=== PATIENT | female | born 1985 | race Caucasian/White ===

== ENCOUNTER 2017-01-06 16:32 | Emergency (ER) | payer MEDICAID ==
--- NOTE | 2017-01-06 17:33 | EDPHY ---
H & P Time Seen by Provider: 01/06/17 17:17 HPI/ROS: CHIEF COMPLAINT: Right eye irritation HISTORY OF PRESENT ILLNESS: 31-year-old female presents to the emergency department by private vehicle complaining of irritation to the right eye since this morning. Patient is now noticing symptoms in the left eye as well. She states when she woke up this morning her right eye was mattery and very sticky and was stuck shot. She used a warm compress to open her eye. She denies foreign body sensation or trauma. She denies any double vision or blurry vision. She does not were contacts or glasses. ROS: Denies foreign body, denies trauma, denies double vision or blurry vision. Past Medical/Surgical History: Negative Social History: Smoking Status: Current every day smoker Physical Exam: Pupils:equal round and reactive to light EOMI Lids: no edema or swelling Skin: no proptosis, no periorbital erythema or swelling, no vesicles Conjunctivae: Injection with green discharge bilateral eyes. Cornea: Slit-lamp and fluorescein exam not indicated and not performed Anterior chamber:normal, no hyphema or hypopyon Constitutional: Initial Vital Signs Temperature (C) 36.7 C 01/06/17 16:33 Heart Rate 88 01/06/17 16:33 Respiratory Rate 16 01/06/17 16:33 Blood Pressure 124/73 H 01/06/17 16:33 O2 Sat (%) 96 01/06/17 16:33 O2 Delivery Mode Room Air Allergies/Adverse Reactions: No Known Allergies Allergy (Unverified 01/06/17 16:36) Home Medications: Medication Instructions Recorded Ofloxacin 0.3% [Ocuflox] 1 - 2 drops EACHEYE QID 7 Days 01/06/17 MDM/Departure - [facility] ED Course/Re-evaluation: 31-year-old female presents to the emergency department with right eye irritation. The patient does not were contacts. She denies foreign body sensation. She clinically has conjunctivitis. I do not think slit-lamp examination or fluorescein is indicated. Patient will be treated with Ocuflox drops. She was given referral to Ophthalmology if her symptoms did not improve. She was told to not return to work until she has been on topical antibiotic drops for 24 hours. - Depart Disposition: Home, Routine, Self-Care Clinical Impression: Conjunctivitis Qualifiers: Conjunctivitis type: acute Acute conjunctivitis type: unspecified Laterality: bilateral Qualified Code(s): H10.33 - Unspecified acute conjunctivitis, bilateral Condition: Good Instructions: Conjunctivitis (ED) Additional Instructions: Ocuflox 2 drops four times daily for one week to both eyes. Good hand washing as discussed. Return if you develop change in vision or if you feel worse in any way. Prescriptions: Ofloxacin 0.3% [Ocuflox] 1 - 2 drops EACHEYE QID 7 Days Referrals: ALIYA SIMPSON [Other] - As per Instructions Alcira Stratton MD [Non Staff Provider (MD)] - 3-4 days, if not improved ( [employer])
[2017-01-06 17:51] VITALS: BP 131/67; PULSE 86; RESP 20; TEMP 98.4; O2SAT 99
== END 2017-01-06 17:51 | disposition home or self-care (01) ==
DX: H10.33 Unspecified acute conjunctivitis, bilateral (principal); F17.200 Nicotine dependence, unspecified, uncomplicated

== ENCOUNTER 2017-02-02 12:32 | Emergency (ER) | payer MEDICAID ==
[2017-02-02 12:56] VITALS: BP 118/68; PULSE 97; RESP 14; TEMP 98.8; O2SAT 96
--- NOTE | 2017-02-02 14:08 | UCPHY ---
H & P Time Seen by Provider: 02/02/17 13:56 Patient Type: New HPI/ROS: CHIEF COMPLAINT: Cough x1 week HISTORY OF PRESENT ILLNESS: 31-year-old female presents reporting she has had a cough for the last week. Cough has been productive of loose, green sputum. Patient has noticed wheezing, with a wheezy cough and some shortness of breath. No fever. No nausea, vomiting, or diarrhea. No chest pain. Minimal upper respiratory infection symptoms. REVIEW OF SYSTEMS: Aside from elements discussed in the HPI, a comprehensive 10-point review of systems was reviewed and is negative. PAST MEDICAL HISTORY: No history of COPD, asthma, or coronary artery disease. No history of diabetes. History of hepatitis C treated with immunotherapy SOCIAL HISTORY: Smoker. VITAL SIGNS: see nurse's notes. GENERAL: Well-developed, well-nourished, in no acute distress. Very frequent, wheezy cough. HEENT: Atraumatic Eyes: PERRL, EOMI, no conjunctival injection. Ears: TM clear bilaterally. Nose: No discharge. Mouth: moist mucous membranes. Pharynx: no erythema, no exudates, no swelling, no abscess. Uvula is midline. NECK: Supple, no adenopathy, no meningismus, no tenderness. Negative Kernig's and Brudzinski's. LUNGS: Diminished breath sounds, occasional wheeze, bronchial breath sounds. No rhonchi. CARDIAC: Regular rate and rhythm, no rubs, murmurs or gallops. ABDOMEN: Soft, nontender, bowel sounds normal. BACK: No CVA tenderness. EXTREMITIES: Normal, no edema, FROM. NEURO: Alert and oriented, grossly nonfocal. SKIN: Warm and dry, no rash. PSYCHIATRIC: Normal mentation, no agitation. Smoking Status: Heavy smoker Constitutional: Initial Vital Signs Temperature (C) 37.1 C 02/02/17 12:52 Heart Rate 97 02/02/17 12:52 Respiratory Rate 14 02/02/17 12:52 Blood Pressure 118/68 02/02/17 12:52 O2 Sat (%) 96 02/02/17 12:52 O2 Delivery Mode Room Air Allergies/Adverse Reactions: No Known Allergies Allergy (Unverified 01/06/17 16:36) Home Medications: Medication Instructions Recorded AZITHROMYCIN [Z-PACK] 250 - 500 mg PO DAILY #6 tab 02/02/17 Albuterol [Proventil Inhaler HFA 1 - 2 puffs IH Q4H #1 mdi 02/02/17 (*)] Benzonatate [Tessalon Pearles (RX)] 100 mg PO TID PRN #20 cap 02/02/17 Medical Decision Making - Diagnostics Imaging Results: Xray: Chest x-ray was obtained. I viewed the images myself on the PACS system. My interpretation of the images is: No pneumonia, consistent with bronchitis. The radiology interpretation is: Normal. I discussed the results with the patient. ED Course/Re-evaluation: 31-year-old female who is a smoker one-week history productive sputum and a wheezy cough. Patient will be discharged with albuterol meter dose inhaler, and azithromycin. Differential Diagnosis: Differential diagnosis for the patient's cough was considered including but not limited to viral versus bacterial bronchitis, asthma, COPD, pulmonary emboli, upper respiratory infection, lower respiratory infection, and bronchospasm. Departure - Departure Disposition: Home, Routine, Self-Care Clinical Impression: Cough, Bronchitis, Bronchospasm with bronchitis, acute Condition: Good Instructions: Acute Bronchitis (ED), Bronchospasm (ED) Additional Instructions: Please use the metered dose inhaler to help control your coughing and wheezing and shortness of breath. You been given a prescription of azithromycin. Please begin taking this as directed. Over the counter cold medications often contain both antihistamines and decongestants. If you have a runny nose, take an antihistamine. If you are congested, take a decongestant. If you have a sore throat, use Tylenol, or ibuprofen. Throat lozenges, throat sprays, or salt water gargles may also be helpful. You may take Tessalon Perles as needed for cough at night. Seek care urgently or follow up at the emergency department if he develop a fever, worsening symptoms despite the above treatment, shortness of breath, chest pain, vomiting, or other concerns. Referrals: NONE *PRIMARY CARE P,. [Primary Care Provider] - As per Instructions Prescriptions: Albuterol [Proventil Inhaler HFA (*)] 1 - 2 puffs IH Q4H #1 mdi AZITHROMYCIN [Z-PACK] 250 - 500 mg PO DAILY #6 tab Benzonatate [Tessalon Pearles (RX)] 100 mg PO TID PRN #20 cap PRN Reason: Cough - PQRS PQRS Measurement: Not applicable
== END 2017-02-02 14:16 | disposition home or self-care (01) ==
LOC: CED 12:32
DX: J20.9 Acute bronchitis, unspecified (principal)
CPT/HCPCS: 71020-PO; G0463-PO